=== PATIENT | female | born 1985 | race Caucasian/White ===

== ENCOUNTER 2017-11-15 23:43 | Emergency (ER) | payer OTHER ==
[~2017-11-15] VITALS: Ht 175.3 cm; Wt 90.0 kg
[2017-11-15 23:46] VITALS: BP 122/84
[2017-11-16] MEDS ORDERED: LIDOCAINE-MPF 1%, 5ML ONE ×3 (00:20→01:24)
[2017-11-16] MEDS ORDERED: DIPH,PERTUSS(ACELL),TET VAC/PF 0.5 ML IM-VACC ONE ×2 (00:23→00:30)
[2017-11-16] MEDS ORDERED: LIDOCAINE-MPF 1%, 5ML INFIL ONE (00:30)
[2017-11-16] MEDS ORDERED: BACITRACIN ZINC OINT 500U/GM, 0.9 GM ONE (01:46)
== END 2017-11-16 02:10 | disposition home or self-care (01) ==
LOC: ED 11-16 01:35
DX: S69.91XA Unspecified injury of right wrist, hand and finger(s), initial encounter (principal)
CPT/HCPCS: 90471; 90715

== ENCOUNTER 2020-05-04 13:48 | Outpatient (CLI) | payer SELFPAY | END 2020-05-04 23:59 | disposition home or self-care (01) | LOC: CLISVCS 13:48 | DX: Z02.9 Encounter for administrative examinations, unspecified (principal) ==